=== PATIENT | male | born 1955 | race Caucasian/White ===

== ENCOUNTER 2018-08-26 11:54 | Observation (INO) | payer OTHER ==
--- OUTSIDE RECORDS SUMMARY | 2018-08-26 11:57 | XMS REPORT ---
:1955 [facility] Address [address] [place] [address] [address] [place] [address] Care Team Providers Name Role Phone DR MOY MAURICIO Unavailable Unavailable Problems This patient has no known problems. Allergies, Adverse Reactions, Alerts This patient has no known allergies or adverse reactions. Medications This patient has no known medications. Encounters Start End Encounter Admission Attending Care Care Encounter Date/Time Date/Time Type Type Clinicians Facility Department ID 2018-05-07 2018-05-07 Outpatient E MOY MAURICIO [facility] [id number] 18:32:00 19:45:00 Results Test Description Test Time Test Comments Text Results Atomic Results Result Comments BRAIN NATRIURETIC PROTEIN OW 2018-05-07 19:21:00 Test Item Value Reference Range Comments BNP (test code=OBNP) <15 pg/mL 0-50 XR CHEST 1 VIEW PORTABLE *OW*2018-05-07 19:18:55EXAM: CHEST ONE VIEWINDICATION: Chest painCOMPARISON: None availableTECHNIQUE: AP view of the chest.FINDINGS: The heart size is normal. The lungs are clear bilaterally. No pneumothorax orpleural effusion. The pulmonary vasculature is normal. The osseous structuresare unremarkable.IMPRESSION:1. No acute cardiopulmonary processLOCATION: A1CK MB i-STAT OW2018-05-07 19:12:00 Test Item Value Reference Range Comments CKMB (test code=A49) 6.5 ng/mL <=3.6 Previously reported as: 5.5 On 05/07/2018 19:12 By [email or web address] CHEM8+ i-STAT OW2018-05-07 19:10:00 Test Item Value Reference Range Comments SODIUM (test code=JULIO CÉSAR) 139 mmol/L 138-146 POTASSIUM (test code=KI) 4.0 mmol/L 3.5-4.9 CHLORIDE (test code=CLI) 101 mmol/L 98-109 CA IONIZED (test code=ICAI) 1.10 mmol/L 1.12-1.32 GLUCOSE (test code=GLUI) 93 mg/dL 75-100 TCO2 (test code=TCO2) 27 mmol/L 24-29 BUN (test code=BUN1) 19 mg/dL 8-26 CREATININE (test code=CREAI) 1.0 mg/dL 0.6-1.3 ANION GAP (test code=GANG) 16.0 mmol/L HGB (test code=MHB) 15.3 g/dL 12.0-17.0 HCT (test code=MHCT) 45.0 % 38.0-51.0 CBC (INCLUDES AUTOMATED DIFFERENTIAL) *2018-05-07 19:09:00 Test Item Value Reference Range Comments WBC (test code=WBC) 9.7 10\S\3/uL 4.5-11.0 RBC (test code=RBC) 4.96 10\S\6/uL 4.20-5.60 HGB (test code=HBG) 14.7 g/dL 14.0-18.0 HCT (test code=HCT) 45.2 % 35.0-46.0 MCV (test code=MCV) 91.2 fL 80.0-94.0 MCH (test code=MCH) 29.6 pg 27.0-31.0 MCHC (test code=MCHC) 32.5 g/dL 32.0-36.0 RDW (test code=RDW) 14.5 % 11.5-14.5 PLT (test code=PLT) 183 10\S\3/uL 130-400 MPV (test code=OMPV) 8.5 fL 6.2-10.2 NEUTROP # (test code=NE#) 6.5 10\S\3/uL 2.0-8.0 LYMPH # (test code=LY#) 2.2 10\S\3/uL 1.2-4.0 MID # (test code=GMID#) 1.0 10\S\3/uL 0.0-1.1 GRA % (test code=GRA%) 67.2 % 35.0-73.0 LYMPH % (test code=GLY%) 22.9 % 20.0-55.0 MID % (test code=GMID%) 9.9 % 0.0-10.0 PROTHROMBIN TIME i-STAT OW2018-05-07 19:01:00 Test Item Value Reference Range Comments PT (test code=PT1) 13.0 s 10.0-13.0 INR (test code=INR) 1.1 INRH (test code=INRH) SUGGESTED THERAPEUTIC RANGE FOR INR: 2.5 - 3.5 For Patients with Prosthetic Valves or Patients with recurrent Thromboembolic Events 2.0 - 3.0 For Most Other Applications TROPONIN I i-STAT OW2018-05-07 19:00:00 Test Item Value Reference Range Comments TROPONIN I (test code=A84) 0.020 ng/mL 0.000-0.045
--- OUTSIDE RECORDS SUMMARY | 2018-08-26 11:57 | XMS REPORT | Clinical Summary ---
:1955 Author Organization [facility] Address [address] [place] [address] Care Team Providers Name Role Phone Asked, No Pcp Primary Care Provider Unavailable Allergies No Known Allergies Medications Medication Sig Dispensed Refills Start Date End Date Status metoprolol succinate Take 25 mg by 0 Active XL (TOPROL-XL) 25 mg mouth every 24 hr tablet evening. atorvastatin (LIPITOR) Take 40 mg by 0 Active 40 MG tablet mouth every evening. sertraline (ZOLOFT) 50 Take 50 mg by 0 Active MG tablet mouth every evening. aspirin (ECOTRIN) 81 Take 81 mg by 0 Active MG enteric coated mouth every tablet evening. clopidogrel (PLAVIX) Take 1 tablet 30 tablet 5 04/05/2018 05/05/2018 75 mg tablet (75 mg total) by mouth daily for 30 days. Active Problems Problem Noted Date Atherosclerotic heart disease 05/02/2018 Abnormal cardiac function test 04/04/2018 Encounters Date Type Specialty Care Team Description 05/02/2018 Surgery Procedural Gómez Vaughan, Pci percutaneous Cardiology cardiac angioplasty 05/02/2018 - Hospital Cardiology Gómez Vaughan, Atherosclerosis of 05/03/2018 Encounter coronary artery of [place] heart with other form of angina pectoris, unspecified vessel or lesion type 04/04/2018 Surgery Procedural Gómez Vaughan, Cv left heart cath w lv Cardiology MD chris hunt [[id number] (CPT)] 04/04/2018 - Hospital Cardiology Gómez Vaughan, Coronary artery disease of [place] artery of [place] heart with stable angina pectoris (Primary Dx); 04/05/2018 Encounter Abnormal cardiac function test after 08/25/2017 Social History Tobacco Use Types Packs/Day Years Used Date Former Smoker Smokeless Tobacco: Never Used Alcohol Use Drinks/Week oz/Week Comments Yes social Sex Assigned at Date Recorded Not on file Job Start Date Occupation Industry Not on file Not on file Not on file Travel History Travel Start Travel End No recent travel history available. Last Filed Vital Signs Vital Sign Reading Time Taken Blood Pressure 130/71 05/03/2018 9:00 AM CDT Pulse 67 05/03/2018 9:00 AM CDT Temperature 36.1 C (96.9 F) 05/03/2018 7:21 AM CDT Respiratory Rate 20 05/03/2018 7:21 AM CDT Oxygen Saturation 96% 05/03/2018 9:00 AM CDT Inhaled Oxygen Concentration - - Weight 134 kg (295 lb 7 oz) 04/05/2018 6:15 AM CDT Height 180.3 cm (5' 11") 04/04/2018 6:54 AM CDT Body Mass Index 41.21 04/05/2018 6:15 AM CDT Plan of Treatment Health Maintenance Due Date Last Done Comments COLON CANCER SCREENING 2005 SHINGLES VACCINES (1 of 2) 2005 INFLUENZA VACCINE 03/13/2018 Implants Implanted Type Area Ticket Chopper Assembler Device Shelf Model / Identifier Expiration Serial / Date Lot Catheter Bln Otw 2.5mm 12mm Sprinter - [id number] Cardiovascular N/A: [employer] [facility] - [id number] / Implanted: 05/02/2018 (Quantity not on file) Implants N/A VASCULAR / Catheter Cardiac 7f Mach 1 Al2 - [id number] Cardiovascular N/A: [id number] / Implanted: 05/02/2018 (Quantity not on file) Implants N/A INTERVENTIONAL / CARDIOLOGY Stent System 3.5 X 12mm Resolute [place] Otw Coronary - [id number] Coronary Stents N/A: [employer] [place] - [id number] / Implanted: 04/04/2018 (Quantity not on file) N/A CARDIAC RYHTYM / MGMT Stent System 3.5 X 08mm Resolute Chidi Otw Coronary - [id number] Coronary Stents N/A: [employer] [place] - [id number] / Implanted: 04/04/2018 (Quantity not on file) N/A CARDIAC RYHTYM / MGMT Stent System 2.0 X 30mm Resolute [place] Rx Coronary - [id number] Coronary Stents N/A: [employer] [facility] - [id number] / Implanted: 05/02/2018 (Quantity not on file) N/A VASCULAR / Stent System 2.0 X 30mm Resolute Chidi Rx Coronary - [id number] Coronary Stents N/A: [employer] [place] - [id number] / Implanted: 05/02/2018 (Quantity not on file) N/A VASCULAR / Stent System 2.75 X 18mm Resolute [place] Otw Coronary - [id number] Coronary Stents N/A: [employer] - [id number] / Implanted: Qty: 1 on 05/02/2018 by Gómez Vaughan MD N/A CARDIAC RYHTYM / MGMT Procedures Procedure Name Priority Date/Time Associated Diagnosis Comments ECG PRE/POST OP Routine 05/03/2018 3:19 Results for this AM CDT procedure are in the results section. ESTIMATED GFR Routine 05/03/2018 3:13 Results for this AM CDT procedure are in the results section. HC COMPLETE BLD Routine 05/03/2018 3:13 Results for this COUNT W/AUTO DIFF AM CDT procedure are in the results section. BASIC METABOLIC Routine 05/03/2018 3:13 Results for this PANEL AM CDT procedure are in the results section. ECG PRE/POST OP Routine 05/02/2018 4:46 Results for this PM CDT procedure are in the results section. ACTIVATED CLOTTING Routine 05/02/2018 2:14 Results for this TIME PM CDT procedure are in the results section. ACTIVATED CLOTTING Routine 05/02/2018 1:34 Results for this TIME PM CDT procedure are in the results section. CV PCI PERCUTANEOUS Routine 05/02/2018 12:20 Atherosclerosis of Results for this CARDIAC ANGIOPLASTY PM CDT coronary artery of procedure are in [place] heart with other the results form of angina section. pectoris, unspecified vessel or lesion type ACTIVATED CLOTTING Routine 05/02/2018 11:01 Results for this TIME AM CDT procedure are in the results section. ACTIVATED CLOTTING Routine 05/02/2018 10:51 Results for this TIME AM CDT procedure are in the results section. ACTIVATED CLOTTING Routine 05/02/2018 10:40 Results for this TIME AM CDT procedure are in the results section. ACTIVATED CLOTTING Routine 05/02/2018 10:29 Results for this TIME AM CDT procedure are in the results section. ACTIVATED CLOTTING Routine 05/02/2018 10:18 Results for this TIME AM CDT procedure are in the results section. ACTIVATED CLOTTING Routine 05/02/2018 9:34 Results for this TIME AM CDT procedure are in the results section. ESTIMATED GFR Routine 04/26/2018 3:00 Results for this PM CDT procedure are in the results section. PROTHROMBIN TIME Routine 04/26/2018 3:00 Old myocardial Results for this WITH INR PM CDT infarction procedure are in Congestive the results cardiomyopathy section. BASIC METABOLIC Routine 04/26/2018 3:00 Old myocardial Results for this PANEL PM CDT infarction procedure are in Congestive the results cardiomyopathy section. HC COMPLETE BLD Routine 04/26/2018 3:00 Old myocardial Results for this COUNT W/AUTO DIFF PM CDT infarction procedure are in Congestive the results cardiomyopathy section. HC COMPLETE BLD Routine 04/05/2018 6:30 Results for this COUNT W/AUTO DIFF AM CDT procedure are in the results section. ZZESTIMATED GFR Routine 04/05/2018 4:00 Results for this AM CDT procedure are in the results section. BASIC METABOLIC Routine 04/05/2018 4:00 Results for this PANEL AM CDT procedure are in the results section. CONSULT CARDIAC Routine 04/04/2018 2:38 REHAB PHASE 1 PM CDT ECG PRE/POST OP Routine 04/04/2018 11:44 Results for this AM CDT procedure are in the results section. CV PERCUTANEOUS Routine 04/04/2018 10:55 Abnormal cardiac Results for this CORONARY AM CDT function test procedure are in INTERVENTION the results section. CV LEFT HEART CATH Routine 04/04/2018 10:55 Abnormal cardiac Results for this LV GRAM WITH CORS AM CDT function test procedure are in the results section. ACTIVATED CLOTTING Routine 04/04/2018 10:24 Results for this TIME AM CDT procedure are in the results section. ECG 12-LEAD STAT 04/04/2018 6:51 Results for this AM CDT procedure are in the results section. after 08/25/2017 Results ECG Pre/Post Op (05/03/2018 3:19 AM CDT)Only the most recent of3 resultswithin the time period is included. Ventricular rate 74 [facility] Atrial rate 74 [facility] FL interval 188 [facility] QRSD interval 98 [facility] QT interval 402 [facility] QTC interval 446 [facility] P axis 1 43 [facility] QRS axis 1 55 [facility] T wave axis 45 [facility] EKG impression Normal sinus rhythm-Normal ECG-In automated [facility] comparison with ECG of 02-MAY-2018 16:46,-No significant change was found- Performing Organization Address City/[facility] Phone Number [facility] MUSE [address] [place] [address] Estimated GFR (05/03/2018 3:13 AM CDT)Only the most recent of2 resultswithin the time period is included. Estimated GFR 80 mL/min/1.73 m2 [facility] DEPARTMENT OF Comment: PATHOLOGY AND GENOMIC CatergoryUnitsInterpretation MEDICINE G1 >=90 Normal or high G2 60-89Mildly decreased [id number] to moderately decreased D2y84-10Ojumdzljdp to severely decreased G4 15-29Severely decreased G5 <15Kidney failure The eGFR was calculated using the Chronic Kidney Disease Epidemiology Collaboration (CKD-EPI) equation. Interpretation is based on recommendations of the National Kidney Foundation-Kidney Disease Outcomes Quality Initiative (NKF-KDOQI) published in 2014. Specimen Plasma specimen Performing Organization Address City/[facility] Cent[facility]ode Phone Number [facility] PATHOLOGY AND [address] [place] [phone] GENOMIC MEDICINE CBC with platelet and differential (05/03/2018 3:13 AM CDT)Only the most recent of3 resultswithin the time period is included. WBC 10.48 4.50 - 11.00 k/uL [facility] DEPARTMENT OF PATHOLOGY AND GENOMIC MEDICINE RBC 4.38 (L) 4.40 - 6.00 m/uL [facility] DEPARTMENT OF PATHOLOGY AND GENOMIC MEDICINE HGB 13.2 (L) 14.0 - 18.0 g/dL [facility] DEPARTMENT OF PATHOLOGY AND GENOMIC MEDICINE HCT 40.2 (L) 41.0 - 51.0 % [facility] DEPARTMENT OF PATHOLOGY AND GENOMIC MEDICINE MCV 91.8 82.0 - 100.0 fL [facility] DEPARTMENT OF PATHOLOGY AND GENOMIC MEDICINE MCH 30.1 27.0 - 34.0 pg [facility] DEPARTMENT OF PATHOLOGY AND GENOMIC MEDICINE MCHC 32.8 31.0 - 37.0 g/dL [facility] DEPARTMENT OF PATHOLOGY AND GENOMIC MEDICINE RDW - SD 49.4 37.0 - 55.0 fL [facility] DEPARTMENT OF PATHOLOGY AND GENOMIC MEDICINE MPV 10.8 8.8 - 13.2 fL [facility] DEPARTMENT OF PATHOLOGY AND GENOMIC MEDICINE Platelet count 147 (L) 150 - 400 k/uL [facility] DEPARTMENT OF PATHOLOGY AND GENOMIC MEDICINE Nucleated RBC 0.00 /100 WBC [facility] DEPARTMENT OF PATHOLOGY AND GENOMIC MEDICINE Neutrophils 74.9 (H) 39.0 - 69.0 % [facility] DEPARTMENT OF PATHOLOGY AND GENOMIC MEDICINE Lymphocytes 11.9 (L) 25.0 - 45.0 % [facility] DEPARTMENT OF PATHOLOGY AND GENOMIC MEDICINE Monocytes 10.2 (H) 0.0 - 10.0 % [facility] DEPARTMENT OF PATHOLOGY AND GENOMIC MEDICINE Eosinophils 2.0 0.0 - 5.0 % [facility] DEPARTMENT OF PATHOLOGY AND GENOMIC MEDICINE Basophils 0.7 0.0 - 1.0 % [facility] DEPARTMENT OF PATHOLOGY AND GENOMIC MEDICINE Immature granulocytes 0.3Comment: 0.0 - 1.0 % [facility] DEPARTMENT OF "Immature PATHOLOGY AND GENOMIC granulocytes" MEDICINE (promyelocytes, myelocytes, metamyelocytes) Specimen Blood Performing Organization Address City/[facility] Phone Number [facility] DEPARTMENT PATHOLOGY AND [address] [place] [phone] [facility] MEDICINE Basic metabolic panel (05/03/2018 3:13 AM CDT)Only the most recent of3 resultswithin the time period is included. Sodium 139 135 - 148 mEq/L [facility] DEPARTMENT OF PATHOLOGY AND GENOMIC MEDICINE Potassium 4.3 3.5 - 5.0 mEq/L [facility] DEPARTMENT OF PATHOLOGY AND GENOMIC MEDICINE Chloride 105 98 - 112 mEq/L [facility] DEPARTMENT OF PATHOLOGY AND GENOMIC MEDICINE CO2 23 (L) 24 - 31 mEq/L [facility] DEPARTMENT OF PATHOLOGY AND GENOMIC MEDICINE Anion gap 11@ANIO 7 - 15 mEq/L [facility] DEPARTMENT OF PATHOLOGY AND GENOMIC MEDICINE BUN 19 8 - 23 mg/dL [facility] DEPARTMENT OF PATHOLOGY AND GENOMIC MEDICINE Creatinine 1.00 0.70 - 1.20 mg/dL [facility] DEPARTMENT OF PATHOLOGY AND GENOMIC MEDICINE Glucose 106 (H) 65 - 99 mg/dL [facility] DEPARTMENT OF PATHOLOGY AND GENOMIC MEDICINE Calcium 8.7 (L) 8.8 - 10.2 mg/dL [facility] DEPARTMENT OF PATHOLOGY AND GENOMIC MEDICINE Specimen Plasma specimen Performing Organization Address City/[facility]ercode Phone Number [facility] DEPARTMENT PATHOLOGY AND [address] [place] [phone] [facility] MEDICINE Activated clotting time (05/02/2018 2:14 PM CDT)Only the most recent of9 resultswithin the time period is included. Activated clotting time 154 (H) 96 - 152 sec [facility] DEPARTMENT OF Comment: PATHOLOGY AND GENOMIC Meter ID: [id number] MEDICINE Svp Operations: Eliu Cody Performing Organization Address City/State/Zipcode Phone Number [facility] DEPARTMENT OF PATHOLOGY AND [address] [place] [address] [facility] Cv clinical laboratory manager procedure (05/02/2018 12:20 PM CDT) [facility] Pl[facility] of a 2.75x18 mm Resolute [place] SANDRA to OM1 and 2 overlapping 2.0x30 mm Resolute Chidi SANDRA to OM2 SOAPING DEPARTMENT SUPERVISOR. OM2 had BREANNA 2 flow at the end of the case Attending: Dr. Gómez Vaughan Interventional Fellow: Tyshawn Garcia, Resident, EQUIPMENT/ANTICOAGULATION: Right Common Femoral Artery 7F Sheath XB4, XB4.5Guide Catheter Hi-Torque Floppy XS, PT2 coronary wire Anticoagulation:Heparin with ACT >250 sec prior to procedure PROCEDURAL DETAILS: The LMT was engaged with the [id number] Catheter and aHi Torque regular coronary wirecoronary wire was advanced into the distal OM1.A PT2 wire was then advanced into and across the OM2 SOAPING DEPARTMENT SUPERVISOR into the inferior bifurcation. A 1.5x15 mm semicompliant balloon was advanced to the distal lesion and serial dilations were performed back to the proximal at 8 fabian. After this, there appeared to be dissection of the vessel. There also appeared to be a new branch that wasn't appreciated on the initial angiogram. Next, the tandem lesions in the proximal OM1 with interposed aneurysmal segment was pre-dilated with a 2.5x12 mm semi-compliant balloon at 10 fabian and stented with a 2.75x18 mm Resolute [place] SANDRA at 12 fabian. Attempt was made to post dilate with a 2.75x12 mm NC, however it would not cross the proximal edge of the stent even after switching out for a stiffer wire.Unfortunately, in attempting to advance the balloon the guide was pushed out of the ostium and guide position was lost. The XB4 was then changed out for an XB4.5 guide. The stent was rewired and a 2.75x6 mm NC was advanced and inflated to 16 fabian for serial inflations throughout the stent.After this, attention was turned back to the OM2 and it was rewired with the Hi Torque floppy into the distal vessel with care to be in the true lumen.A 2.0x20 mm balloon was advanced and used to inflate the lesion at 8 fabian. Next a 2.0x30 mm Resolute Chidi SANDRA was advanced to the distal lesion and deployed at 12 fabian.There remained TIMI1 flow, so a second 2.0x30 mm Resolute Chidi SANDRA was deployed back to the ostium. Flow was still poor and there was concern for distal dissection.The stent balloon was advanced to the distal edge of the stent and inflated for 60 seconds with some improvement but still minimal distal flow.The balloon was exchanged for a 1.5x15 mm balloon which was advanced and inflated distally to the stent for another 60 seconds. With this, distal flow improved greatly, but was still TIMI2. There was no obvious further dissection and the patient was hemodynamically stable and pain free so the case was ended at this point. HEMOSTASIS: Manual Pressure ADDITIONAL POST-PROCEDURE MEDICATIONS: PLAN: 1. ASA 81mg daily 2. Clopidogrel 75mg daily . 3. Cardiac medical therapy and aggressive risk factor modification. Cardiac rehabilitation. 4. Transferred in stable condition Performing Organization Address [facility]/Zipcode Phone Number [facility] [address] [place] [address] Prothrombin time with INR (04/26/2018 3:00 PM CDT) Prothrombin time 13.7 12.0 - 15.0 sec [facility] DEPARTMENT OF PATHOLOGY AND GENOMIC MEDICINE INR 1.0 [facility] DEPARTMENT OF Comment: PATHOLOGY AND GENOMIC The International Normalized Ratio (INR) is a therapeutic MEDICINE monitoring tool for patients who are stable on oral anticoagulant therapy. An INR of 2.0-3.0 is suggested for deep vein thrombosis/pulmonary embolism. Specimen Blood Performing Organization Address [facility]/Zipcode Phone Number [facility] DEPARTMENT OF PATHOLOGY [address] [place] [address] AND Private Practice MEDICINE Estimated GFR (04/05/2018 4:00 AM CDT) GFR Non Af Amer 68 mL/min/1.73 m2 [facility] DEPARTMENT OF PATHOLOGY AND GENOMIC MEDICINE GFR Af Amer 82 mL/min/1.73 m2 [facility] DEPARTMENT OF Comment: PATHOLOGY AND GENOMIC Chronic kidney disease: <60 mL/min/1.73m2 MEDICINE Kidney failure: <15 mL/min/1.73m2 The estimated GFR is calculated from the IDMS-traceable Modification of Diet in Renal Disease Equation. The accuracy of the calculation is poor when the creatinine is normal. Calculated values >90 mL/min/1.73m2 are not reported. This equation has not been validated in children (<18 years), women, the elderly (>70 years), or ethnic groups other than Caucasians and Americans. Specimen Plasma specimen Performing Organization Address City/State/Zipcode Phone Number [facility] DEPARTMENT OF PATHOLOGY AND [address] [place] [address] [facility] Cv clinical laboratory manager procedure (04/04/2018 10:55 AM CDT) Cath EF Quantitative 40 % [facility] Narrative Performed At [facility] 3.5x12 Resolute [place] SANDRA to distal LAD with questionable dissection at proximal edge covered with a 3.5x8 mm Resolute [place] SANDRA with no evidence of dissection or perforation and TIMI3 flow Severe stenosis of OM1, and SOAPING DEPARTMENT SUPERVISOR of OM2, planned for staged PCI Attending: Dr. Gómez Vaughan Interventional Fellow: Tyshawn Garcia, Resident, MD EQUIPMENT/ANTICOAGULATION: Right Common Femoral Artery 6F Sheath XB LAD 3.5Guide Catheter Hi-Torque Floppy XS coronary wire Anticoagulation:Angiomax bolus and Infusion with ACT >250 sec prior to procedure PROCEDURAL DETAILS: The LMT was engaged with the XB LAD 3.5Guide Catheter and a Hi-Torque Floppy XS coronary wirecoronary wire was advanced into the distal LAD. The lesion in the distalLAD was pre-dilated with a 2.0x10mm semi-compliant balloon at 12atm and stented with a 3.5x12 mm Resolute [place] SANDRA at 12atm.Angiography was concerning for a limited edge dissection at the proximal edge of the stent so a 3.5x8 mm Resolute Chidi SANDRA was advanced and overlapped with the initial stent and deployed at 11 fabian. Both stents were then post dilated with a 3.5x11 mm NC stormer at 14 fabian. Final angiography revealed no evidence of dissection or perforation; there was BREANNA 3 flow and 0% residual stenosis. HEMOSTASIS: Manual Pressure ADDITIONAL POST-PROCEDURE MEDICATIONS: PLAN: 1. ASA 81mg daily 2. Clopidogrel 75mg daily . 3. Cardiac medical therapy and aggressive risk factor modification. Cardiac rehabilitation. 4. Transferred in stable condition Performing Organization Address City/[facility]/Zipcode Phone Number [facility] [address] [place] [address] ECG 12 lead (04/04/2018 6:51 AM CDT) Ventricular rate 64 [facility] Atrial rate 64 [facility] M[facility] FL interval 168 [facility] QRSD interval 96 [facility] QT interval 394 [facility] QTC interval 406 [facility] P axis 1 42 [facility] QRS axis 1 39 [facility] M[facility] T wave axis 39 HM MUSE EKG impression Normal sinus rhythm-Possible Inferior infarct HM MUSE , age undetermined-Abnormal ECG-No previous ECGs available- Performing Organization Address [facility] Phone Number [facility] MUSE [address] [place] [address] after 08/25/2017 Insurance Payer Benefit Plan / Group Subscriber ID Type Phone Address [employer] OPEN ACCESS/NETWORK xxxxxxxxxxx HMO (Home) [address] [place] [id number] Advance Directives Patient has advance care planning documents on file. For more information, please contact:[place] [address]
[2018-08-26 12:22] LABS: Absolute Lymphocytes (CBC) 2.8 K/uL (0.7-4.9); Absolute Monocytes 0.9 K/uL (0.1-1.3); Absolute Neutrophil 6.5 K/uL (1.8-8.0); Basophils % 0.8 % (0-1.3); Eosinophils % 0.8 % (0-4.4); Hematocrit 46.1 % (39.6-49.0); Lymphocytes % 26.9 % (15.3-44.8); MPV 8.9 fL (7.6-11.3); Monocytes % 8.6 % (3.3-12.3); Protime INR 1.07; RBC Red Blood Cell Count 5.15 M/uL (4.33-5.43)
[2018-08-26 12:32] LABS: ALT/SGPT 28 U/L (12-78); AST/SGOT 23 U/L (15-37); Albumin 3.5 g/dL (3.4-5.0); Alkaline Phosphatase 81 U/L (45-117); BUN Blood Urea Nitrogen 14 mg/dL (7-18); Bicarbonate 25 mmol/L (21-32); Bilirubin Total 0.5 mg/dL (0.2-1.0); Glucose Level 87 mg/dL (74-106); NT PRO-BNP 94 pg/mL (<125); Potassium 3.8 mmol/L (3.5-5.1); Protein, Total 7.4 g/dL (6.4-8.2); Sodium Level 142 mmol/L (136-145); Troponin (Emerg Dept Use Only) < 0.02 ng/mL (0.0-0.045)
--- NOTE | 2018-08-26 12:39 | ER ---
Nurse's Notes [facility] Name: Venkat Gutierrez Age: 63 yrs Sex: Male : 1955 Arrival Date: 08/26/2018 Time: 11:57 Bed 5 Private MD: Diagnosis: chest pain Presentation: 08/26 11:59 Presenting complaint: EMS states: the pt had chest pain for about an hour starting at ca1 0700H today at work. He had a history of OK and 5 stents where put in March and April of last year. Because of his history the occupational health nurse has decided to send him to the ER. Transition of care: patient was not received from another setting of care. Onset of symptoms was August 26, 2018 at 07:00. Risk Assessment: Do you want to hurt yourself or someone else? Patient reports no desire to harm self or others. Initial Sepsis Screen: Does the patient meet any 2 criteria? No. Patient's initial sepsis screen is negative. Does the patient have a suspected source of infection? No. Patient's initial sepsis screen is negative. Care prior to arrival: Glucose check: 121. 11:59 Method Of Arrival: EMS: [facility] ca1 11:59 Acuity: LUIS MIGUEL 3 ca1 Historical: - Allergies: 12:05 No Known Allergies; ca1 - Home Meds: 12:05 metoprolol tartrate 50 mg Oral tab [Active]; aspirin 81 mg Oral chew [Active]; ca1 atorvastatin [Active]; clopidogrel 75 mg oral tab [Active]; Vascepa 1 gram oral cap [Active]; Zoloft Oral [Active]; - PMHx: 12:05 Myocardial infarction; ca1 - PSHx: 12:05 Heart stents; ca1 - Immunization history:: Flu vaccine is up to date. - Social history:: Smoking status: Patient/guardian denies using tobacco. - Ebola Screening: : Patient denies exposure to infectious person No symptoms or risks identified at this time. Screenin:10 Abuse screen: Denies threats or abuse. Denies injuries from another. Nutritional ca1 screening: No deficits noted. Tuberculosis screening: No symptoms or risk factors identified. Fall Risk None identified. Assessment: 12:10 General: Appears in no apparent distress. Behavior is calm, cooperative, appropriate ca1 for age. General:. General: Denies pain right now, but states "at 0700 H at work, I felt a sharp pain at my left chest and I felt dizzy. I Ignored it as it wasn't much but it lasted for an hour" . Pain: Denies pain. Pain: Neuro: Level of Consciousness is awake, alert, obeys commands, Oriented to person, place, time, situation, Reports dizziness, at 0700 H. Cardiovascular: Heart tones S1 S2 present Capillary refill < 3 seconds Patient's skin is warm and dry. Respiratory: Airway is patent Trachea midline Respiratory effort is even, unlabored, Respiratory pattern is regular, symmetrical, Breath sounds are clear bilaterally. GI: Abdomen is round non-distended, Bowel sounds present X 4 quads. Abd is soft and non tender X 4 quads. : No signs and/or symptoms were reported regarding the genitourinary system. EENT: No signs and/or symptoms were reported regarding the EENT system. Derm: Skin is intact, is healthy with good turgor, Skin is pink, warm \\T\\ dry. Musculoskeletal: Circulation, motion, and sensation intact. Capillary refill < 3 seconds, Range of motion: intact in all extremities. 12:10 Pain: Pain currently is 0 out of 10 on a pain scale. Pain began 0700 H Today. ca1 13:01 Reassessment: Patient appears in no apparent distress at this time. Patient and/or ca1 family updated on plan of care and expected duration. Pain level reassessed. Patient is alert, oriented x 3, equal unlabored respirations, skin warm/dry/pink. 14:02 Reassessment: Patient appears in no apparent distress at this time. Patient and/or ca1 family updated on plan of care and expected duration. Pain level reassessed. Patient is alert, oriented x 3, equal unlabored respirations, skin warm/dry/pink. Eating lunch with at bedside. 14:53 Reassessment: Patient appears in no apparent distress at this time. Patient is alert, ca1 oriented x 3, equal unlabored respirations, skin warm/dry/pink. Awaiting room assignment. 15:41 Reassessment: Patient appears in no apparent distress at this time. Patient is alert, ca1 oriented x 3, equal unlabored respirations, skin warm/dry/pink. Vital Signs: 11:59 BP 135 / 85; Pulse 65; Resp 17; Temp 98.1; Pulse Ox 99% on R/A; Weight 129.27 kg; ca1 Height 6 ft. 0 in. (182.88 cm); Pain 0/10; 12:56 BP 118 / 65; Pulse 59; Resp 18; Pulse Ox 97% on R/A; ca1 13:56 BP 119 / 59; Pulse 59; Resp 18; Pulse Ox 99% on R/A; ca1 14:53 BP 112 / 56; Pulse 68; Resp 19; Pulse Ox 100% on R/A; ca1 15:41 BP 122 / 69; Pulse 58; Resp 19; Pulse Ox 100% on R/A; ca1 16:12 BP 115 / 58; Pulse 67; Resp 18; Pulse Ox 100% on R/A; ca1 11:59 Body Mass Index 38.65 (129.27 kg, 182.88 cm) ca1 ED Course: 11:57 Patient arrived in ED. aa5 11:58 Denise Quiros, KYM is Primary Nurse. ca1 11:58 EKG done, by scanning tech. reviewed by Eleazar Blanton MD. sm3 11:59 Arm band placed on right wrist. EKG completed in triage. Results shown to MD. ca1 12:02 Eleazar Blanton MD is Attending Physician. ps1 12:03 Initial lab(s) drawn, by me. Inserted saline lock: 20 gauge in left antecubital area, jb1 using aseptic technique. Blood collected. 12:04 Triage completed. ca1 12:10 Patient maintains SpO2 saturation greater than 95% on room air. ca1 12:10 Patient has correct armband on for positive identification. Placed in gown. Bed in low ca1 position. Call light in reach. Side rails up X 1. quality assurance monitor chassis on. Pulse ox on. NIBP on. 12:38 Gutierrez Cevallos MD is Referral Physician. ps1 13:02 XRAY Chest (1 view) In Process Unspecified. EDMS 13:30 Niles Mckeon MD is Hospitalizing Provider. ps1 16:11 No provider procedures requiring assistance completed. Patient admitted, IV remains in ca1 place. Administered Medications: No medications were administered Outcome: 12:39 Discharge ordered by MD. ps1 13:31 Decision to Hospitalize by Provider. ps1 16:11 Admitted to Tele accompanied by tech, via wheelchair, room 420, with chart, Report ca1 called to Sola Garcia RN 16:11 Condition: stable 16:11 Instructed on the need for admit. 16:18 Patient left the ED. ca1 Signatures: Dispatcher [employer] Tyshawn Sellers jb1 Cara Kwok, RN RN aa5 Eleazar Blanton MD MD ps1 Sandi Mckeon 3 Denise Quiros RN RN ca1
--- NOTE | 2018-08-26 12:39 | EDPHYS ---
Physician Documentation [facility] Name: Venkat Gutierrez Age: 63 yrs Sex: Male : 1955 Arrival Date: 08/26/2018 Time: 11:57 Bed 5 Private MD: ED Physician Eleazar Blanton HPI: 08/26 12:03 This 63 yrs old Male presents to ER via Unassigned with complaints of Chest ps1 Pain. 12:03 Hx of CAD x5 stents. Dr. Orr in [facility]. Onset was this morning upon getting to [facility] work. Approximately 7am. Was going to get coffee, felt lightheaded, CP localized substernally. No radiation or diaphoresis. Pain rated as mild. Concerned because he reportedly had an artery that could not be stented during [facility] in Apr last year and had a hx of an MA that he did not know about. . Historical: - Allergies: 12:05 No Known Allergies; ca1 - Home Meds: 12:05 metoprolol tartrate 50 mg Oral tab [Active]; aspirin 81 mg Oral chew [Active]; ca1 atorvastatin [Active]; clopidogrel 75 mg oral tab [Active]; Vascepa 1 gram oral cap [Active]; Zoloft Oral [Active]; - PMHx: 12:05 Myocardial infarction; ca1 - PSHx: 12:05 Heart stents; ca1 - Immunization history:: Flu vaccine is up to date. - Social history:: Smoking status: Patient/guardian denies using tobacco. - Ebola Screening: : Patient denies exposure to infectious person No symptoms or risks identified at this time. ROS: 12:03 Constitutional: Negative for fever, chills, and weight loss, Eyes: Negative for injury, ps1 pain, redness, and discharge, ENT: Negative for injury, pain, and discharge, Respiratory: Negative for shortness of breath, cough, wheezing, and pleuritic chest pain, Abdomen/GI: Negative for abdominal pain, nausea, vomiting, diarrhea, and constipation, Back: Negative for injury and pain, MS/Extremity: Negative for injury and deformity, Skin: Negative for injury, rash, and discoloration. 12:03 Cardiovascular: Positive for chest pain. 12:03 Respiratory: Positive for dyspnea on exertion. 12:03 Neuro: Positive for near syncope. Exam: 12:03 Constitutional: This is a well developed, well nourished patient who is awake, alert, ps1 and in no acute distress. Head/Face: Normocephalic, atraumatic. Eyes: Pupils equal round and reactive to light, extra-ocular motions intact. Lids and lashes normal. Conjunctiva and sclera are non-icteric and not injected. Chest/axilla: Normal chest wall appearance and motion. Nontender with no deformity. No lesions are appreciated. Cardiovascular: Regular rate and rhythm. No gallops, murmurs, or rubs. Normal PMI, no JVD. No pulse deficits. Respiratory: Lungs have equal breath sounds bilaterally, clear to auscultation and percussion. No rales, rhonchi or wheezes noted. No increased work of breathing, no retractions or nasal flaring. Abdomen/GI: Soft, non-tender, with normal bowel sounds. No distension or tympany. No guarding or rebound. No evidence of tenderness throughout. Skin: Warm, dry with normal turgor. Normal color with no rashes, no lesions, and no evidence of cellulitis. MS/ Extremity: Pulses equal, no cyanosis. Neurovascular intact. Full, normal range of motion. Neuro: Awake and alert, GCS 15, oriented to person, place, time, and situation. Cranial nerves II-XII grossly intact. Sensory grossly intact. Vital Signs: 11:59 BP 135 / 85; Pulse 65; Resp 17; Temp 98.1; Pulse Ox 99% on R/A; Weight 129.27 kg; ca1 Height 6 ft. 0 in. (182.88 cm); Pain 0/10; 12:56 BP 118 / 65; Pulse 59; Resp 18; Pulse Ox 97% on R/A; ca1 13:56 BP 119 / 59; Pulse 59; Resp 18; Pulse Ox 99% on R/A; ca1 14:53 BP 112 / 56; Pulse 68; Resp 19; Pulse Ox 100% on R/A; ca1 15:41 BP 122 / 69; Pulse 58; Resp 19; Pulse Ox 100% on R/A; ca1 16:12 BP 115 / 58; Pulse 67; Resp 18; Pulse Ox 100% on R/A; ca1 11:59 Body Mass Index 38.65 (129.27 kg, 182.88 cm) ca1 MDM: 12:09 Patient medically screened. ps1 08/26 12:02 Order name: CBC with Diff; Complete Time: 12:37 [facility] 08/26 12:02 Order name: Magnesium; Complete Time: 12:37 [facility] 08/26 12:02 Order name: NT PRO-BNP; Complete Time: 12: [facility] 08/26 12:02 Order name: PT-INR; Complete Time: 12:37 [facility] 08/26 12:02 Order name: Troponin (emerg Dept Use Only); Complete Time: 12:37 [facility] 08/26 12:02 Order name: CMP; Complete Time: 12:37 [facility] 08/26 12:02 Order name: XRAY Chest (1 view); Complete Time: 13:42 [facility] 08/26 12:02 Order name: EKG; Complete Time: 12:03 [facility] 08/26 12:02 Order name: Cardiac monitoring; Complete Time: 12: [facility] 08/26 12:02 Order name: EKG - Nurse/Tech; Complete Time: 12: [facility] 08/26 12:02 Order name: IV Saline Lock; Complete Time: 12: [facility] 08/26 12:02 Order name: Labs collected and sent; Complete Time: 12: [facility] 08/26 12:02 Order name: O2 Per Protocol; Complete Time: 12:04 [facility] 08/26 12:02 Order name: O2 Sat Monitoring; Complete Time: 12:04 ps1 Administered Medications: No medications were administered Disposition: 08/26/18 13:31 Hospitalization ordered by Niles Mckeon for Observation. Preliminary diagnosis is chest pain. - Bed requested for Telemetry/MedSurg (observation). - Status is Observation. ca1 - Condition is Stable. - Problem is new. - Symptoms have improved. UTI on Admission? No Signatures: Dispatcher [employer] Teagan Chauhan RN RN iw Eleazar Blanton MD MD ps1 Denise Quiros RN RN ca1 Corrections: (The following items were deleted from the chart) 12:39 12:39 08/26/2018 12:39 Discharged to Home. Impression: Other chest pain. Condition is ps1 Stable. Forms are Medication Reconciliation Form, Thank You Letter, Antibiotic Education, Prescription Opioid Use. Follow up: Gutierrez Cevallos; When: 1 - 2 days; Reason: If symptoms return, Further diagnostic work-up, Recheck today's complaints, Continuance of care. Follow up: Emergency Department; When: As needed; Reason: Worsening of condition. Problem is new. Symptoms have improved. ps1 15:38 13:31 Hospitalization Ordered by Niles Mckeon MD for Observation. Preliminary diagnosis iw is chest pain. Bed requested for Telemetry/MedSurg (observation). Status is Observation. Condition is Stable. Problem is new. Symptoms have improved. UTI on Admission? No. ps1 16:18 15:38 08/26/2018 13:31 Hospitalization Ordered by Niles Mckeon MD for Observation. ca1 Preliminary diagnosis is chest pain. Bed requested for Telemetry/MedSurg (observation). Status is Observation. Condition is Stable. Problem is new. Symptoms have improved. UTI on Admission? No. iw
--- NOTE | 2018-08-26 13:28 | RAD REPORT ---
EXAM DESCRIPTION: Dylan Single View08/26/2018 1:01 pm CLINICAL HISTORY: Chest pain COMPARISON: 2016 FINDINGS: The lungs appear clear of acute infiltrate. The heart is normal size IMPRESSION: No acute abnormalities displayed
--- NOTE | 2018-08-26 15:07 | EKG ---
Test Date: 2018-08-26 Test Time: 11:52:35 Sound Recordist: GONZALEZ MEASUREMENT RESULTS: Intervals: Rate: 62 DE: 154 QRSD: 94 QT: 410 QTc: 416 [place]: P: 12 DE: 154 QRS: 35 T: 39 INTERPRETIVE STATEMENTS: Normal sinus rhythm Normal ECG No previous ECG available for comparison Electronically Signed On 08-26-18 15:06:07 ACCOUNTANT AUDITOR by Bradley Moya
[2018-08-26] MEDS ORDERED: ACETAMINOPHEN 500 MG TAB PO PRN (16:52)
[2018-08-26] MEDS ORDERED: MORPHINE 4 MG/ML SYR IV PRN (16:52)
[2018-08-26] MEDS ORDERED: NITROGLYCERIN 0.4 MG/TAB SL PRN (17:12)
[2018-08-26] MEDS ORDERED: INFLUENZA VACCINE (for 3y+) 0.5 ML DOSE IMVAC ONE (18:00)
[2018-08-26 18:39] VITALS: BMI 38.6
[2018-08-26] MEDS: ICOSAPENT ETHYL PO SCH (20:53)
[2018-08-26] MEDS ORDERED: ATORVASTATIN 80 MG TAB PO SCH (21:00)
[2018-08-26] MEDS ORDERED: CLOPIDOGREL 75 MG TABLET PO SCH (21:00)
[2018-08-26] MEDS ORDERED: ATORVASTATIN 40 MG TAB PO SCH (21:00)
--- NOTE | 2018-08-27 02:47 | HP ---
Date of Admission: 08/26/2018 Chief Complaint: Chest pain. Stave Grader: Dr. Moya with Cardiology. Primary Care Physician: Unknown. History Of Present Illness: The patient is a 63-year-old male with past medical history of coronary artery disease, status post stent x5 in April of 2018 at [facility], essential hypertension, who was in his usual state of health until the day of admission when the patient had sudden onset of ches t tightness which was on the left side of his chest, sharp, nonradiating, associated with some dizzin ess and lightheadedness. Denies any nausea, vomiting, diaphoresis, or palpitation. The patient's pa in did not last very long. Did not recur. However, as the patient was recently diagnosed with silen t [place] and received 5 stents, he became concerned and came in to the ER for further evaluation. He did report his blood pressure being elevated more than usual and systolic 140s. His blood pressure on a typical day is 110 to 120s systolic. Upon arrival, the patient's workup was negative. Cardiac enzy mes and EKG were negative. His vital signs were stable. He was afebrile. The patient was referred for admission for cardiac workup. Past Medical History: SVT, status post ablation in 2005; coronary artery disease, status post stent; and essential hypertension. Past Surgical History: Cardiac stents x5 in April 2018, cardiac ablation for SVT in 2005, right rotator cuff repair, and appendectomy as a teenager. Medications: List reviewed. Allergies: NO KNOWN DRUG ALLERGIES. Social History: The patient quit smoking 5 years ago. No daily alcohol use. Drinks on occasion. N o illicit drug use. The patient is , works at [employer]. Family History: The patient denies any premature coronary artery disease in the family. States that cancer runs on his father's side of his family. Review of Systems: An 11-point system reviewed, negative except as per HPI. Physical Examination: Vital Signs: Blood pressure 135/85, pulse 65, respirations 17, temperature 98.1, and O2 of 99% on ro om air. General: Awake, alert, and oriented x3, not in any acute distress. Obese male. HEENT: Normocephalic, atraumatic. PERRLA. EOMI. Moist mucous membranes. Oropharynx is clear. No rmal dentition. Conjunctivae anicteric. Neck: Supple. No JVD. Trachea midline. CV: S1, S2. No murmurs. Regular rate and rhythm. Peripheral pulses present. Respiratory: Clear to auscultation bilaterally. No wheezing or stridor. No use of accessory muscle s. Gastrointestinal: Abdomen is soft, nontender, nondistended. Positive bowel sounds. Extremities: No clubbing or cyanosis. The patient does have some pedal edema. Neurologic: Nonfocal. Cranial nerves 2 through 12 intact grossly. No focal neurological deficit. Speech is normal. Strength is 5/5, bilateral upper and lower extremities. Skin: No rashes. Normal skin turgor. Psychiatric: Mood is okay. Affect is full. Insight and judgment are good. Laboratory Data: Sodium 142, potassium 3.8, chloride 110, CO2 of 25, BUN 14, creatinine 1.08, glucos e 87, calcium 8.5, magnesium 2. Troponin less than 0.02. Albumin 3.5. INR 1.07. WBC 10.3, H and H 15.2 and 46.1, platelets 211, and neutrophils 62%. Chest x-ray does not show any acute cardiopulmon gertrude process. EKG; normal sinus rhythm, rate of 62. No previous EKG for comparison. No ST or T-wave changes. Assessment And Plan: A 63-year-old male with; 1.Unstable angina. We will start on chest pain guidelines, beta-ginna, ALFONSO inhibitor, aspirin and Plavix, and statin. Cardiology has been consulted. Initial workup has been negative. We will obta in serial cardiac enzymes and electrocardiogram to rule out acute coronary syndrome. 2.Coronary artery disease, [place]vi artery and cheme[place]vi heart, status post stent x5, with angina. 3.Essential hypertension. We will resume home medications as appropriate. 4.Obesity, body mass index of 38. 5.Remote history of supraventricular tachycardia, status post ablation. Plan: Admit the patient to [facility], place with observation with remote cardiac telemetry. We will obtain echocardiogram. ROSETTE Voice ID: [id number]
[2018-08-27 04:16] LABS: Absolute Lymphocytes (CBC) 2.7 K/uL (0.7-4.9); Absolute Monocytes 0.9 K/uL (0.1-1.3); Basophils % 0.8 % (0-1.3); Hematocrit 43.7 % (39.6-49.0); Lymphocytes % 27.5 % (15.3-44.8); MPV 8.5 fL (7.6-11.3); RBC Red Blood Cell Count 4.85 M/uL (4.33-5.43)
[2018-08-27 04:29] LABS: Potassium 4.2 mmol/L (3.5-5.1)
[2018-08-27] MEDS ORDERED: CLOPIDOGREL 75 MG TABLET PO SCH (09:00)
[2018-08-27] MEDS: ICOSAPENT ETHYL PO SCH (09:00)
[2018-08-27] MEDS ORDERED: ASPIRIN EC 81 MG TAB PO SCH (09:00)
[2018-08-27] MEDS ORDERED: METOPROLOL TAR 50 MG TAB PO SCH (09:00)
[2018-08-27] MEDS ORDERED: LISINOPRIL 10 MG TAB PO SCH (09:00)
[2018-08-27] MEDS ORDERED: SERTRALINE HCL 50 MG TAB PO SCH (09:00)
[2018-08-27 09:29] VITALS: O2SAT 100
[2018-08-27 12:29] VITALS: BP 163/72; TEMP 97.3
--- NOTE | 2018-08-27 13:13 | ECHO ---
HEIGHT: 6 ft 0 in WEIGHT: 285 lb 0 oz DATE OF STUDY: 08/27/[address]: Niles Mckeon MD 2-DIMENSIONAL: YES M.MODE: YES DOPPLER: YES COLOR FLOW: YES TDS: NO PORTABLE: NO DEFINITY: NO BUBBLE STUDY: NO DIAGNOSIS: CHEST PAIN CARDIAC HISTORY: CATHERIZATION: SURGERY: PROSTHETIC VALVE: PACEMAKER: MEASUREMENTS (cm) DIASTOLIC (NORMALS) SYSTOLIC (NORMALS) IVSd 1.1 (0.6-1.2) LA Diam 3.9 (1.9-4.0) LVEF 74% LVIDd 4.1 (3.5-5.7) LVIDs 2.4 (2.0-3.5) %FS 42% LVPWd 1.2 (0.6-1.2) Ao Diam 3.2 (2.0-3.7) 2 DIMENSIONAL ASSESSMENT: RIGHT ATRIUM: NORMAL LEFT ATRIUM: NORMAL RIGHT VENTRICLE: NORMAL LEFT VENTRICLE: NORMAL TRICUSPID VALVE: NORMAL MITRAL VALVE: NORMAL PULMONIC VALVE: NORMAL AORTIC VALVE: NORMAL PERICARDIAL EFFUSION: NONE AORTIC ROOT: NORMAL LEFT VENTRICULAR WALL MOTION: NORMAL DOPPLER/COLOR FLOW: NORMAL COMMENTS: NORMAL 2D ECHOCARDIOGRAM WITH DOPPLER. NO WALL MOTION ABNORMALITY. NO EFFUSION. TECHNOLOGIST: Trupti WINKLER
--- NOTE | 2018-08-27 14:35 | CON ---
Date of Consultation: 08/27/[address] Mckeon's service on 08/26/2018. I saw the patient on 08/27/2018. Reason For Consultation: Chest pain and palpitations. History Of Present Illness: Mr. Gutierrez is a 63-year-old white male. He is a patient of Dr. Gómez Vaughan at [facility]. In April of 2018 according to the patient, he underwent 5 stents, 1 of them was a difficult vessel to get to, but eventually they did it. Prior to his stent, he did not mendez ve any chest pain. His primary care physician in [place] had noticed an abnormal EKG and underwent a workup and done the stents. Today, he comes with what he describes as a strong heartbeat, but not f ast. After that he developed a pinpoint sharp chest pain over the left anterior chest that did not r adiate. It lasted a few minutes. No nausea, vomiting, diaphoresis, PND, orthopnea, pedal edema, or syncope. By the time, I saw him, the EKG and chest x-ray and laboratory evaluation were all negative . Past Medical History: As stated above. Allergies: NONE. Review of Systems: Negative. Social History: Negative. Family History: Negative. Medications: At home include metoprolol, aspirin, Lipitor, Plavix, Vascepa, and Zoloft. Physical Examination: Vital Signs: He is a very pleasant man, in no acute distress. Vital Signs: Stable. Afebrile. HEENT: Negative. Neck: Supple with no bruit. Chest: Clear. Cardiac: Revealed a regular rhythm and rate without murmurs, gallops, or rubs. Abdomen: Benign. Extremities: Revealed no clubbing, cyanosis, or edema. Diagnostic Data: Normal. Impression And Plan: 1.Atypical chest pain, definitely noncardiac in nature. Echocardiogram is pending. I think it is m usculoskeletal. 2.History of coronary artery disease status post multiple stents. Has a followup coming up with Dr. Vaughan in the near future. 3.Hypertension. 4.Dyslipidemia. 5.Depression. The echocardiogram is normal. Mr. Gutierrez is not due for having a stress test and cert ainly does not need 1 at this point. He can follow up with Dr. Vaughan. He can go home as far as I am co ncerned. NB/MODL Voice ID: [id number] Report ID: [id number]
--- NOTE | 2018-09-01 16:36 | P.SSS ---
Patient History Date of Service: 08/27/18 History of Present Illness: The patient is a 63-year-old male with past medical history of coronary artery disease, status post stent x5 in April of 2018 at [facility], essential hypertension, who was in his usual state of health until the day of admission when the patient had sudden onset of chest tightness which was on the left side of his chest, sharp, nonradiating, associated with some dizziness and lightheadedness. Denies any nausea, vomiting, diaphoresis, or palpitation. The patient's pain did not last very long. Did not recur. However, as the patient was recently diagnosed with silent WA and received 5 stents, he became concerned and came in to the ER for further evaluation. He did report his blood pressure being elevated more than usual and systolic 140s. His blood pressure on a typical day is 110 to 120s systolic. Upon arrival, the patient's workup was negative. Cardiac enzymes and EKG were negative. His vital signs were stable. He was afebrile. The patient was referred for admission for cardiac workup. Allergies No Known Allergies Allergy (Unverified 08/26/18 14:18) Home Medications: Aspirin [Aspirin EC 81 MG] 1 tab PO DAILY 08/26/18 Atorvastatin Calcium [Lipitor] 1 tab PO BEDTIME 08/26/18 Clopidogrel Bisulfate [Plavix*] 1 tab PO DAILY 08/26/18 Icosapent Ethyl [Vascepa] 1 tab PO BID 08/26/18 Sertraline [Zoloft*] 50 mg PO DAILY 08/26/18 Lisinopril [Prinivil*] 10 mg PO DAILY #30 tab 08/27/18 Metoprolol Tartrate 25 mg PO BID #60 tablet 08/27/18 Nitroglycerin [Nitrostat*] 0.4 mg SL UD PRN #15 tab 08/27/18 - Past Medical/Surgical History Has patient received pneumonia vaccine in the past: No Diabetic: No -: MYOCARDIAL INFARCT -: DEPRESSION -: L. SHOULDER ROTATOR CUFF REPAIR -: 2005 HEART ABLATION FOR SVT -: X5 CORONARY STENTS -: APPE - Family History Father -: Cancer Notes: LUNG Brother -: Diabetes Mother Notes: AHLZEIMER'S - Social History Smoking Status: Former smoker Alcohol use: No CD- Drugs: No Caffeine use: Yes Place of Residence: Home Review of Systems 10-point ROS is otherwise unremarkable Physical Examination - Vital Signs Temperature: 97.3 F Blood Pressure: 163/72 Pulse: 59 Respirations: 20 Pulse Ox (%): 94 - Physical Exam General: Alert, In no apparent distress, Oriented x3 HEENT: Atraumatic, PERRLA, Mucous membr. moist/pink, EOMI, Sclerae nonicteric Neck: Supple, 2+ carotid pulse no bruit, No LAD, Without JVD or thyroid abnormality Respiratory: Clear to auscultation bilaterally, Normal air movement Cardiovascular: Regular rate/rhythm, Normal S1 S2 Gastrointestinal: Normal bowel sounds, No tenderness Musculoskeletal: No tenderness Integumentary: No rashes Neurological: Normal gait, Normal speech, Normal strength at 5/5 x4 extr, Normal tone, Normal affect Lymphatics: No axilla or inguinal lymphadenopathy Treatment Summary: Patient was admitted for chest pain, ACS was ruled out. cardiology was consulted. Patient had a normal ECHO, He will folllow up with his outpatient cardiology in 3-4 weeks. He remained HDS throughout the stay. - Disposition Discharge Date: 08/27/18 Disposition: ROUTINE DISCHARGE Condition: GOOD Consultations: Cardiology, Dr. Cevallos Patient Discharge Instructions: Please follow up with the senior medical transcriptionist in the next 1 week. Please follow up with the primary care physician in 1 week. New medications: Lisinopril (for the heart, blood pressure), metoprolol (for the heart), nitroglycerin sublingual as needed. Please return to the ER for worsening symptoms Diet: AHA Activity: Ad west Time Spent Managing Pts Care (In Minutes): 55
== END 2018-08-27 14:05 | disposition home or self-care (01) ==
LOC: ER 11:54 → ERHOLD 14:14 → 4TH 16:12
PROVIDERS: ADMIT Family Medicine; ATTEND Family Medicine
DX: R07.9 Chest pain, unspecified (principal); I25.10 Atherosclerotic heart disease of native coronary artery without angina pectoris; I10 Essential (primary) hypertension; Z95.5 Presence of coronary angioplasty implant and graft
CPT/HCPCS: 36415; 71045; 80048; 80053; 80061; 83735; 83880; 84484; 85025; 85610; 93005; 93306; 94760; 99285; G0378

== ENCOUNTER 2021-01-19 14:55 | Emergency (ER) | payer OTHER ==
--- OUTSIDE RECORDS SUMMARY | 2021-01-19 14:59 | XMS REPORT | Continuity of Care Document ---
:1955 Author Organization [facility] t Address [address] [place] [address] Care Team Providers Name Role Phone Eder Earl DO Primary Care Physician Jori Hernandes MD Attending Clinician Katiana CORDERO P. Attending Clinician Matt CORDERO Attending Clinician Alexus CORDERO CLindsey Attending Clinician Kiko Harkins MD Attending Clinician Gama MEJÍA Attending Clinician Unavailable Eder Earl DO Attending Clinician Jovanny Cain MD Attending Clinician PARESH Attending Clinician Unavailable DR LULY Attending Clinician Unavailable DR LULY Admitting Clinician Unavailable Payers Payer Name Policy Type Policy Effective Date Expiration Date Sour ce Number CIGNACIGNA OPEN [id number] 2002 [place] ACCESS/NETWORKxx 00:00:00 Methodis t [id number] 2-PresentHMO Problems Condition Condition Condition Status Onset Resolution Last Treating Co mments Source Name Details Category Date Date Treatment Clinician Date Essential Essential Disease Active 2019-08 Last Sincere rene hypertensi hypertensi 2- Assessmen Methodi on, benign on, benign 00:00: t & Plan: st 00 Formattin g of this note might be different from the original. 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 On statin; recent lipids from June 2020 were good Atheroscle Atheroscle Disease Active Last H chet rosis of rosis of 9-20 Assessmen Met hodi [place] 00:00: t & Plan: st coronary coronary 00 Formattin artery of artery of g of this [place] note heart heart might be without without different angina angina from the pectoris pectoris original. s/p multivess el PCI; no anginal symptoms; on antiplate lets and statin Abnormal Abnormal Disease Active [place] cardiac cardiac 04-04 Methodi function function 00:00: st test test 00 Allergies, Adverse Reactions, Alerts This patient has no known allergies or adverse reactions. Family History Family Member Diagnosis Comments Start Date Stop Date Source Natural brother Hypertension [place] Natural father Gallbladder disease [place] Natural father Heart disease [place] Natural father Hypertension [place] Natural father Lung cancer [facility] ethodist Natural [facility] [place] Natural mother Rheum arthritis [place] Social History Social Habit Start Date Stop Date Quantity Comments Source Exposure to Not sure [place] Metho dist SARS-CoV-2 (event) Cigarettes smoked 2020-08-09 2020-08-09 [place] current (pack per 00:00:00 00:00:00 day) - Reported Cigarette 2020-08-09 2020-08-09 [place] Method ist pack-years 00:00:00 00:00:00 Tobacco use and 2020-08-09 2020-08-09 Current user [place] exposure 00:00:00 00:00:00 Alcohol intake 2020-08-09 2020-08-09 Current drinker [place] on [place] 00:00:00 00:00:00 of alcohol (finding) Alcohol Comment 2018-04-04 2018-04-[address] [facility] ethodist 00:00:00 00:00:00 History of tobacco 1974 2013-08-18 Current smoker Tres moreira [place] use 00:00:00 00:00:00 Sex Ass[birth year] [facility] trevorjoi 00:00:00 00:00:00 Smoking Status Start Date Stop Date Source Former smoker 2020-08-09 00:00:00 2020-08-09 00:00:00 Fernando Kirkland Medications Ordered Filled Start Stop Current Ordering Indication Dosage Frequency Signature Comments Components Source Medication Medication Date Date Medication? Clinician (SIG) Name Name Zheng 2019-08 Yes 1{puff} QD Inhale 1 [place] Ellipta 09 puff once Methodi 62.5-25 00:00: daily. st mcg/actuati 00 on blister with device sertraline 2019-08 Yes 50mg QD Take 50 mg [place] (ZOLOFT) 50 09-13 by mouth Meth nikhil MG tablet 16:29: every st 54 evening. aspirin 2019-08 Yes 81mg QD Take 81 mg [place] (ECOTRIN) 09-13 by mouth Method i 81 MG 16:29: every st enteric 54 evening. coated tablet metoprolol 2019-08 Yes 25mg QD Take 25 mg [place] succinate 09-13 by mouth Method i XL 16:29: every st (TOPROL-XL) 54 evening. 25 mg 24 hr tablet icosapent 2019-08 Yes 2g Q.5D Take 2 g [place] ethyl 09-13 by mouth 2 Methodi (VASCEPA) 1 16:29: (two) st gram 54 times a capsule day. (vascepa) rosuvastati 2019-08 Yes 40mg QD Take 40 mg Fernando n (CRESTOR) 09-13 by mouth Meth nikhil 40 MG 16:29: daily. st tablet 54 clopidogrel 2019-08- No 75mg QD Take 75 mg [place] (PLAVIX) 75 09-13 by mouth Met hodi mg tablet 16:29: 00:[address] 53 :00 evening. atorvastati 2019-08- No 80mg QD Take 80 mg Fernando n (LIPITOR) 09-13 by mouth Met hodi 40 MG 16:29: 00:[address] tablet 50 :00 evening. Immunizations Ordered Immunization Filled Immunization Date Status Commen ts Source Name Name Sidelines COVID-19 MRNA 2020-10-10 Completed [place] VACCINATION 00:00:00 [place] PFIZER COVID-19 MRNA 2020-09-19 Completed [place] VACCINATION 00:00:00 [place] Vital Signs Vital Name Observation Time Observation Value Comments Source Systolic blood 2020-08-09 10:37:00 116 mm[Hg] [place] n [place] pressure Diastolic blood 2020-08-09 10:37:00 67 mm[Hg] [place] on [place] pressure Heart rate 2020-08-09 10:37:00 68 /min Fernando Kirkland Body height 2020-08-09 10:37:00 180.3 cm Fernando Kirkland Body weight 2020-08-09 10:37:00 132.995 kg Fernando Kirkland BMI 2020-08-09 10:37:00 40.89 kg/m2 Fernando Kirkland Procedures Procedure Date / Time Performing Clinician Source Performed CT CHEST WO CONTRAST 2021-01-18 09:10:50 Hernandes, Debi Dung Sincere Kumar PET CT SKULL BASE TO MID 2020-07-27 12:37:38 Mickie Hernandesng Sahilg Fernando Kirkland THIGH Stacy POC GLUCOSE 2020-07-27 10:38:00 Latasha Hernandesuong Dung Fernando Kumar COMPREHENSIVE METABOLIC 2020-07-20 15:55:00 Hernandes, Debi Dung Fernando Kirkland PANEL Stacy HC COMPLETE BLD COUNT 2020-07-20 15:55:00 Hernandes, Debi Dung Tres Kirkland W/AUTO DIFF Stacy CARCINOEMBRYONIC ANTIGEN 2020-07-20 15:55:00 Latasha Hernandesuong Sahilg Fernando Kirkland (CEA) Stacy PROSTATE SPECIFIC ANTIGEN 2020-07-20 15:55:00 Karley Debi Dun g Fernando Kumar ESTIMATED GFR 2020-07-20 15:55:00 Hernandes, Debi Dung Fernando Kumar ECG 12-LEAD 2020-07-13 17:33:[address] CHEST WO CONTRAST 2020-06-25 11:30:00 Torin Danny [place] Kiko [id number] 2020-03-31 00:00:00 Gómez Vaughan Meth odist CT CHEST LUNG CANCER 2020-03-26 10:22:01 System, Provider Not Tres [place] SCREENING In Plan of Care Planned Activity Planned Date Details Comments Source Future Scheduled 2021-03-26 Screening for Fernando Me thodist Test 00:00:00 malignant neoplasm of lung (procedure) [code = 538367725] Future Scheduled 2021-03-13 INFLUENZA VACCINE [place] Test 00:00:00 [code = INFLUENZA VACCINE] Future Scheduled 2018-05-07 SHINGLES VACCINES (#2) H chet [place] Test 00:00:00 [code = SHINGLES VACCINES (#2)] Future Scheduled 2005 COLONOSCOPY SCREENING Ho harish [place] Test 00:00:00 [code = COLONOSCOPY SCREENING] Future Scheduled 1973 Hepatitis C screening [facility] Mosque Test 00:00:00 (procedure) [code = 493030025] Future Scheduled 1961 65+ PNEUMOCOCCAL [place] Test 00:00:00 VACCINE (1 of 2 - PPSV23) [code = 65+ PNEUMOCOCCAL VACCINE (1 of 2 - PPSV23)] Encounters Start End Encounter Admission Attending Care Care Encounter Source Date/Time Date/Time Type Type Clinicians Facility Department ID 2021-01-18 2021-01-18 Outpatient HERNANDES, [facility] [id number] [place] 00:00:00 00:00:00 DEBI 941 Method i 2020-10-10 2020-10-10 Outpatient DURGABEN, [facility] [id number] [place] 00:00:00 00:00:00 CHRISTOPHER 321 Me thodi 2020-09-19 2020-09-19 Outpatient [facility] [id number] [place] 00:00:00 00:00:00 370 Method i 2020-08-09 2020-08-09 Outpatient GUTIERREZ, [facility] [id number] [place] 00:00:00 00:00:00 ED 460 Meth nikhil 2020-07-27 2020-07-27 Outpatient HERNANDES, [facility] [id number] [place] 00:00:00 00:00:00 DEBI 691 Method i 2020-07-20 2020-07-20 Outpatient HERNANDES, [facility] [id number] [place] 00:00:00 00:00:00 DEBI 679 Method i 2020-07-13 2020-07-13 Outpatient [facility] [id number] [place] 00:00:00 00:00:00 984 Method i 2020-06-25 2020-06-25 Outpatient HARKINS, [facility] [id number] [place] 00:00:00 00:00:00 DANNY 710 Method i 2020-03-26 2020-03-26 Outpatient JOYA EARL [facility] [id number] [place] 00:00:00 00:00:00 665 Method i 2019-10-02 2019-10-02 Outpatient YODER, [facility] [id number] [place] 00:00:00 00:00:00 NATANAEL 077 Method i 2019-10-02 2019-10-02 Outpatient YODER, [facility] [id number] [place] 00:00:00 00:00:00 NATANAEL 642 Method i 2019-10-02 2019-10-02 Outpatient YODER, [facility] [id number] [place] 00:00:00 00:00:00 NATANAEL 492 Method i 2019-10-02 2019-10-02 Outpatient YODER, [facility] [id number] [place] 00:00:00 00:00:00 NATANAEL 355 Method i 2019-10-02 2019-10-02 Outpatient YODER, [facility] [id number] [place] 00:00:00 00:00:00 NATANAEL 281 Method i 2019-10-02 2019-10-02 Outpatient YODER, [facility] [id number] [place] 00:00:00 00:00:00 NATANAEL 183 Method i 2018-05-07 2018-05-07 Outpatient E MOY MAURICIO [facility] [id number] [facility] 18:32:00 19:45:00 [facility] Results Test Description Test Time Test Comments Results Result [facility] e Comments CT Chest [facility] [place] Contrast [address] 10:11:47 Incoming - 01/18/2021 10:14 AM CDT EXAMINATION: CT CHEST WO CONTRASTCLINICAL HISTORY: R91.1 Solitary pulmonary nodule, Lung nodule 6-8mmTECHNIQUE: Axial images of the chest were obtained without intravenous contrast. The lack of intravenous contrast reduces the sensitivity of the exam and evaluating vasculature. CT imaging was performed with iterative reconstruction technique and/or automated exposure control to reduce radiation dose.COMPARISON: CT chest dated June 25, 2020.FINDINGS:Lungs and airways: 9.6 mm nodule in the inferior right upper lobe, not significantly changed from 9.3 mm on prior examination. No new suspicious pulmonary nodules. Right greater than left lung base atelectasis. Calcified granuloma in the right lower lobe.Pleura: No pleural effusion or pneumothorax.Mediasti num and lymph nodes: No lymphadenopathy. Cardiovascular: The heart is normal in size. Coronary artery stents are noted. Minimal calcific atherosclerosis of the aorta.Upper abdomen: No suspicious abnormalities.Musculo skeletal: No suspicious osseous lesions. Mild degenerative changes of the thoracic spine.IMPRESSION:A 9-10 mm inferior right upper lobe pulmonary nodule is not significantly changed in size from prior examinations. Recommend repeat CT of the chest in 6-12 months.[facility]-[id number] Dictated and approved by residential sales manager/fellow: Rony Elias M.D.I, Willy Perry MD, personally reviewed the images and resident's/fellow's findings and agree with the final report. PET/CT Skull 2020-07-13 [facility] Radiology Results Method ist Thigh 15:15:28 Incoming - 07/27/2020 3:18 PM CST EXAMINATION: PET CT SKULL BASE TO MID THIGHCLINICAL HISTORY: R91.1 Solitary pulmonary nodule, solitary lung nodule in ex smoker ; STAGINGCOMPARISON: No prior PET scans available, CT chest 06/25/2020 TECHNIQUE: The patient received 10-15 mCi 18-FDG intravenously. 1 hour later, PET/CT scanning from the orbits to the mid thighs was performed. CT scanning was nondiagnostic and used for attenuation correction purposes and to aid in localization of any abnormal findings on the PET images. Automated dose exposure control was utilized. Blood glucose = 88.FINDINGS:Head and NeckThere is no suspicious lymph node uptake and no evidence of malignancy in the brain.Chest9 mm nodule inferior right upper lobe does not demonstrate detectable uptake above background. No suspicious uptake in the: lungs, mediastinum, david, axillae.AbdomenUptake is normal in the: liver, spleen, adrenal glands, pancreas, kidneys, stomach. There is no suspicious retroperitoneal or mesenteric lymph node uptake.PelvisThere is no suspicious pelvic or inguinal lymph node uptake.Osseous StructuresThere is no suspicious osseous uptake. IMPRESSION:1.Stable 9 mm right upper lobe nodule without uptake, favoring a benign etiology. This does not exclude C, however, and follow-up chest CT in approximately 5-6 months is recommended.2.No evidence of FDG-avid malignancy.[facility]-[id number] ECG 12 lead 2020-07-13 17:24:25 Test Item Value Reference Range Interpretation Comme nts Ventricular rate (test code = 253) 60 Atrial rate (test code = 255) 60 MT interval (test code = 266) 164 QRSD interval (test code = 260) 100 QT interval (test code = 264) 412 QTC interval (test code = 265) 412 P axis 1 (test code = 267) 41 QRS axis 1 (test code = 268) 46 T wave axis (test code = 270) -5 EKG impression (test code = 273) Normal sinus rhythm-Inferior infar ct , age undetermined-Abnormal ECG- [facility] Chest Lung Cancer [id number] 10:53:47EXAMINATION: CT CHEST LUNG CANCER SCREENING CLINICAL HISTORY: The patient qualifies for lung cancer screening by meeting the following criteria: 1. Patient is age 55-75 years2. Patient has 30 or more pack years history of smoking3. Patient is a current or a former smoker who has quit within the last 15 years4. Patient is asymptomatic5. Patient has not had a CT scan of the chest within the last year6. Patient has no known history of [place] lung cancer within the last 5 years Patient has participated in a shared decision making session; including explanation on benefits and harms of screening, follow-up diagnostic testing, over diagnosis, false-positive rate, and total radiation exposure. Patient has received counseling on the importance of maintaining cigarette smoking abstinence and if appropriate, has received information on smoking cessation interventions. TECHNIQUE: Multiple axial images of the chest were obtained without intravenous contrast. Sagittal and coronal computerized reformatted im ages were also obtained. The study was performed using low-dose lung cancer screening protocol. Total Exam DLP: 49.5 mGy-cm. DOSE REDUCTION: CT imaging was performed with iterative reconstruction technique and/or automated exposure control to reduce radiation dose. COMPARISON: None. FINDINGS: 9 mm solid circumscribed pulmonary nodule located within the posterior aspect of the anterior right upper lobe near the major and minor fissures. Bilateral dependent subsegmental atelectasis. Curvilinear scarring in the lingula. Mild bronchial wall thickening consistent with colitis. Heart is normal in size. Calcification of the left anterior descending and circumflex coronary arteries with possible stents. No pericardial effusion. Aorta is nonaneurysmal and there is mild calcification of the descending segment. Pulmonary artery is normal in diameter. No mediastinal mass or thoracic adenopathy. No acute or suspicious osseous lesion is identified. IMPRESSION: 9 mm solid nodule anterior right upper lobe. Lung RADS category: 4A Recommendation: 3 month surveillance LDCT or PET/CT. ScoreCategoryFindings (Lung-RADS v1.1)Pwzhgjnaeq9GwcfhlkbRe lung nodules or Nodule(s) with specific calcifications:complete, central, popcorn, concentricrings and fat containing nodules 12 month VUWP7HswdmyColpeyunlarb nodule(s) (See Footnote 11)< 10 mm (524 mm3)Solid nodule(s):< 6 mm (< 113 mm3)new < 4 mm (< 34 mm3)Part solid nodule(s):< 6 mm total diameter (< 113 mm3) onbaseline screeningNon solid nodule(s) (GGN):<30 mm (<87427yd2) OR 30 mm ( 27473 mm3) and unchangedor slowly growing Category 3 or 4 nodules unchanged for 3 omisvc73 month HOVJ1Toeyzcxp BenignSolid nodule(s): 6 to < 8 mm ( 113 to < 268 mm3) atbaseline ORnew 4 mm to < 6 mm (34 to < 113 mm3)Part solid nodule(s): 6 mm total diameter ( 113 mm3) withsolid component < 6 mm (< 113 mm3) ORnew < 6 mm total diameter (< 113 mm3)Non solid nodule(s):(GGN) 30 mm ( 14,137 mm3) onbaseline CT or new6 month HBLH4IXxloheyqleFvnlq nodule(s): 8 to <15 mm ( 268 to < 1767 mm3) atbaseline ORgrowing < 8 mm (< 268 mm3) ORnew 6 to < 8 mm (113 to < 268 mm3)Part solid nodule(s): 6 mm ( 113 mm3) with solidcomponent 6 mm to < 8 mm ( 113 to< 268 mm3) ORwith a new or growing < 4 mm (< 34 mm3)solid componentEndobronchial nodule3 month LDCT; PET/CT may beused when there is a 8 mm (268 mm3) solid akcnvooja4UTbzk SuspiciousSolid nodule(s): 15 mm ( 1767 mm3) ORnew or growing, and 8 mm ( 268 mm3)Part solid nodule(s) with:a solid component 8 mm ( 268 mm3)OR a new or growing 4 mm ( 34 mm3) solid componentChest CT with or withoutcontrast, PET/CT and/or tissuesampling depending on the*probability of malignancy andcomorbidities. PET/CT may beused when there is a 8 mm( 268 mm3) solid component.For new large nodules thatdevelop on an annual repeatscreening CT, a 1 month LDCT may be recommended to address potentially infectious or inflammatory dmjkxurcsb8SQzdg SuspiciousCategory 3 or 4 nodules with additionalfeatures or imaging findings thatincreases the suspicion of malignancySame as 4B FOOTNOTES: 1) Negative screen: does not mean that an individual does not have lung cancer2) Size: To calculate nodule mean diameter, measure both the long and short axis to one decimal point, and report mean nodule diameter to one decimal point3) Size Thresholds: apply to nodules at first detection, and that grow and reach a higher size category4) Growth: an increase in size of > 1.5 mm (> 2 mm3)5) Exam Category: each exam should be coded 04 based on the nodule(s) with the highest degree of suspicion6) Exam Modifiers: S modifier may be added to the 04 category7) Lung Cancer Diagnosis: Once a patient is diagnosed with lung cancer, further management (including additional imaging such as PET/CT) may be performed for purposes of lungcancer staging; this is no longer screening8) Practice audit definitions: a negative screen is defined ascategories 1 and 2; a positive screen is defined as categories 3 and 49) Category 4B Management: this is predicated on the probability of malignancy based on patient evaluation, patient preference and risk of malignancy; radiologists areencouraged to use the Anna et al assessment tool when making lpgxlyyaalibmhu32) Category 4X: nodules with additional imaging findings that increase the suspicion of lung cancer, such as spiculation, GGN that doubles in size in 1 year, enlarged lymph nodes etc11) Solid nodules with smooth margins, an oval, lentiform or triangular shape, and maximum diameter less than 10 mm or 524 mm3(perifissural nodules) should be classified ascategory 212) Category 3 and 4A nodules that are unchanged on interval CT should be coded as category 2, and individuals returned to screening in 12 ibrsof82) LDCT: low dose [facility] MethodistBRAIN NATRIURETIC PROTEIN OW2018-05-07 19:21:00 Test Item Value Reference Range Interpretation Comments BNP (test code = OBNP) <15 pg/mL 0-50 XR CHEST 1 VIEW PORTABLE *OW*2018-05-07 19:18:55EXAM: CHEST ONE VIEWINDICATION: Chest painCOMPARISON: None availableTECHNIQUE: AP view of the chest.FINDINGS:The heart size is normal. The lungs are clear bilaterally. No pneumothorax orpleural effusion. The pulmonary vasculature is normal. The osseous structuresare unremarkable.IMPRESSION:1. No acute cardiopulmonary processLOCATION: A1CK MB i-STAT OW2018-05-07 19:12:00 Test Item Value Reference Range Interpretation Comments CKMB (test code = 6.5 ng/mL <=3.6 HH Previously reported as: A49) 5.5 On 2017 19:12 By JXS7 CHEM8+ i-STAT OW2018-05-07 19:10:00 Test Item Value Reference Range Interpretation Comments SODIUM (test code = JULIO CÉSAR) 139 mmol/L 138-146 POTASSIUM (test code = KI) 4.0 mmol/L 3.5-4.9 CHLORIDE (test code = CLI) 101 mmol/L 98-109 CA IONIZED (test code = ICAI) 1.10 mmol/L 1.12-1.32 L GLUCOSE (test code = GLUI) 93 mg/dL 75-100 TCO2 (test code = TCO2) 27 mmol/L 24-29 BUN (test code = BUN1) 19 mg/dL 8-26 CREATININE (test code = CREAI) 1.0 mg/dL 0.6-1.3 ANION GAP (test code = GANG) 16.0 mmol/L HGB (test code = MHB) 15.3 g/dL 12.0-17.0 HCT (test code = MHCT) 45.0 % 38.0-51.0 CBC (INCLUDES AUTOMATED DIFFERENTIAL) *2018-05-07 19:09:00 Test Item Value Reference Range Interpretation Comments WBC (test code = WBC) 9.7 10\S\3/uL 4.5-11.0 RBC (test code = RBC) 4.96 10\S\6/uL 4.20-5.60 HGB (test code = HBG) 14.7 g/dL 14.0-18.0 HCT (test code = HCT) 45.2 % 35.0-46.0 MCV (test code = MCV) 91.2 fL 80.0-94.0 MCH (test code = MCH) 29.6 pg 27.0-31.0 MCHC (test code = MCHC) 32.5 g/dL 32.0-36.0 RDW (test code = RDW) 14.5 % 11.5-14.5 PLT (test code = PLT) 183 10\S\3/uL 130-400 MPV (test code = OMPV) 8.5 fL 6.2-10.2 NEUTROP # (test code = NE#) 6.5 10\S\3/uL 2.0-8.0 LYMPH # (test code = LY#) 2.2 10\S\3/uL 1.2-4.0 MID # (test code = GMID#) 1.0 10\S\3/uL 0.0-1.1 GRA % (test code = GRA%) 67.2 % 35.0-73.0 LYMPH % (test code = GLY%) 22.9 % 20.0-55.0 MID % (test code = GMID%) 9.9 % 0.0-10.0 PROTHROMBIN TIME i-STAT OW2018-05-07 19:01:00 Test Item Value Reference Range Interpretation Comments PT (test code = 13.0 s 10.0-13.0 PT1) INR (test code = 1.1 INR) INRH (test code = SUGGESTED INRH) THERAPEUTIC RANGE FOR INR: 2.5 - 3.5 For Patients with Prosthetic Valves or Patients with recurrent Thromboembolic Events 2.0 - 3.0 For Most Other Applications TROPONIN I i-STAT OW2018-05-07 19:00:00 Test Item Value Reference Range Interpretation Comments TROPONIN I (test code = A84) 0.020 ng/mL 0.000-0.045
[2021-01-19 15:40] LABS: Absolute Lymphocytes (CBC) 2.7 K/uL (0.7-4.9); Basophils % 1.1 % (0-1.3); Lymphocytes % 25.4 % (15.3-44.8); MPV 9.1 fL (7.6-11.3); RBC Red Blood Cell Count 4.95 M/uL (4.33-5.43)
--- NOTE | 2021-01-19 15:52 | RAD REPORT ---
EXAM DESCRIPTION: RAD - Chest Single View - 01/19/2021 3:45 pm CLINICAL HISTORY: dizziness Chest pain. COMPARISON: <Comparisons> FINDINGS: Portable technique limits examination quality. The lungs are grossly clear. The heart is normal in size. No displaced fractures. IMPRESSION: No acute intrathoracic process suspected.
[2021-01-19 15:53] LABS: Protime INR 0.99
[2021-01-19 16:08] LABS: ALT/SGPT 27 U/L (12-78); AST/SGOT 23 U/L (15-37); Albumin 3.6 g/dL (3.4-5.0); Alkaline Phosphatase 69 U/L (45-117); BUN Blood Urea Nitrogen 16 mg/dL (7-18); Bicarbonate 26 mmol/L (21-32); Bilirubin Direct < 0.1 mg/dL (0-0.2); Bilirubin Total 0.3 mg/dL (0.2-1.0); Glucose Level 132 mg/dL (74-106); Magnesium 2.1 mg/dL (1.8-2.4); NT PRO-BNP 85 pg/mL (<125); Potassium 3.8 mmol/L (3.5-5.1); Protein, Total 7.4 g/dL (6.4-8.2); Sodium Level 142 mmol/L (136-145); Troponin (Emerg Dept Use Only) < 0.02 ng/mL (0.0-0.045)
--- NOTE | 2021-01-19 16:29 | RAD REPORT ---
EXAM DESCRIPTION: CT - Head Brain Wo Cont - 01/19/2021 4:21 pm CLINICAL HISTORY: DIZZINESS Headache, drowsiness COMPARISON: No comparisons TECHNIQUE: All CT scans are performed using dose optimization technique as appropriate and may inclu de automated exposure control or mA/KV adjustment according to patient size. FINDINGS: No intracranial hemorrhage, hydrocephalus or extra-axial fluid collection.No areas of brai n edema or evidence of midline shift. The paranasal sinuses and mastoids are clear. The calvarium is intact. IMPRESSION: No acute intracranial abnormality.
--- NOTE | 2021-01-19 17:53 | ER ---
Nurse's Notes [facility] Name: Venkat Gutierrez Age: 65 yrs Sex: Male : 1955 Arrival Date: 01/19/2021 Time: 14:57 Bed 26 Private MD: Diagnosis: Dizziness and giddiness Presentation: 01/19 14:57 Chief complaint: EMS states: patient began to feel dizzy when he bent over to get his ap3 briefcase. He went to the [facility] in the office, and that is when EMS was called. Coronavirus screen: Client denies travel out of the [place] in the last 14 days. At this time, the client does not indicate any symptoms associated with coronavirus-19. Ebola Screen: No symptoms or risks identified at this time. Initial Sepsis Screen: Does the patient meet any 2 criteria? No. Patient's initial sepsis screen is negative. Does the patient have a suspected source of infection? No. Patient's initial sepsis screen is negative. Risk Assessment: Do you want to hurt yourself or someone else? Patient reports no desire to harm self or others. Onset of symptoms was January 19, 2021. Care prior to arrival: Medication(s) given: ASA, 81 mg, x 1, IV initiated. 18 GA, in the left antecubital area, Oxygen administered. via nasal cannula. 14:57 Method Of Arrival: EMS: [facility] ap3 14:57 Acuity: LUIS MIGUEL 3 ap3 Triage Assessment: 15:03 General: Appears comfortable, Behavior is calm, cooperative, appropriate for age. Pain: ap3 Denies pain. EENT: No signs and/or symptoms were reported regarding the EENT system. Neuro: Reports dizziness, since less than one hour ago. Cardiovascular: Denies chest pain. Respiratory: Denies shortness of breath. GI: Patient currently denies nausea. : No signs and/or symptoms were reported regarding the genitourinary system. Derm: No signs and/or symptoms reported regarding the dermatologic system. Historical: - Allergies: 15:03 No Known Allergies; ap3 - Home Meds: 15:03 aspirin 81 mg Oral chew [Active]; atorvastatin [Active]; clopidogrel 75 mg Oral tab ap3 [Active]; metoprolol tartrate 50 mg Oral tab [Active]; Vascepa 1 gram Oral cap [Active]; Zoloft Oral [Active]; - PMHx: 15:03 Myocardial infarction; ap3 - PSHx: 15:03 Heart stents; ap3 - Immunization history:: Adult Immunizations up to date. - Social history:: Smoking status: Patient/guardian denies using tobacco, the patient reports quitting approximately 8 years ago. Screenin:03 Abuse screen: Denies threats or abuse. Nutritional screening: No deficits noted. ap3 Tuberculosis screening: No symptoms or risk factors identified. Fall Risk None identified. Assessment: 15:05 General: see triage assessment. ap3 16:28 Reassessment: Patient and/or family updated on plan of care and expected duration. Pain ap3 level reassessed. Patient is alert, oriented x 3, equal unlabored respirations, skin warm/dry/pink. 17:06 Reassessment: patient resting in bed. denies pain at this time. side rails are up X's ap3 2. bed is locked in lowest position. call light is within reach. Vital Signs: 14:57 BP 104 / 67; Pulse 73; Pulse Ox 97% ; Weight 131.54 kg; Height 6 ft. (182.88 cm); ap3 15:05 BP 119 / 61; Pulse 74; Resp 13; Temp 97.9; Pulse Ox 100% on R/A; Pain 0/10; ap3 15:30 BP 126 / 64 RA Supine; Pulse 73 MON; Pulse Ox 96% on R/A; ap3 15:35 BP 131 / 56 RA Sitting (auto/); Pulse 77; Pulse Ox 98% on R/A; ap3 15:40 BP 128 / 66 Standing; Pulse 76 RA; Pulse Ox 96% on R/A; ap3 16:25 BP 145 / 79; Pulse 72; Resp 17; Pulse Ox 98% on R/A; ap3 17:19 BP 133 / 75; Pulse 67; Resp 13; Pulse Ox 97% on R/A; ap3 14:57 Body Mass Index 39.33 (131.54 kg, 182.88 cm) ap3 NIH Stroke Scale Scores: 15:25 NIHSS Score: 0 jr8 ED Course: 14:57 Patient arrived in ED. ds1 14:57 Dea Quevedo RN is Primary Nurse. ap3 14:59 Dangelo Amin PA is PHCP. jr8 14:59 Sai Mallory MD is Attending Physician. jr8 15:01 Triage completed. ap3 15:04 Arm band placed on right wrist. EKG completed in triage. Results shown to MD. ap3 15:04 Patient has correct armband on for positive identification. Bed in low position. Call ap3 light in reach. Side rails up X2. air sampling and monitoring on. Pulse ox on. NIBP on. Door closed. Noise minimized. Warm blanket given. 15:05 Maintain EMS IV. Dressing intact. Site clean \T\ dry. Gauge \T\ site: 20G LEFT AC. ap 3 15:46 XRAY Chest (1 view) In Process Unspecified. EDMS 16:21 CT Head Brain wo Cont In Process Unspecified. EDMS 16:25 Patient moved back from CT. ap3 17:49 Nurse Practitioner and/or Physician Regional Loss Prevention Manager to see patient. ap3 18:01 No provider procedures requiring assistance completed. IV discontinued, intact, ap3 bleeding controlled, No redness/swelling at site. Pressure dressing applied. Administered Medications: No medications were administered Outcome: 17:52 Discharge ordered by MD. jr8 18:01 Discharged to home ambulatory. ap3 18:01 Condition: good 18:01 Discharge instructions given to patient, Instructed on discharge instructions, follow up and referral plans. Demonstrated understanding of instructions, follow-up care. 18:09 Patient left the ED. ap3 NIH Stroke Scale - NIH Stroke Score Date: 01/19/2021 Time: 15:25 Total Score = 0 1a. Level of Consciousness (LOC) - 0(Alert) 1b. Level of Consciousness (LOC) (Year \T\ Age) - 0(Both) 1c. LOC Commands (Open \T\ Closes Eyes/Mobile Home Park Manager) - 0(Both) 2. Best Gaze (Lateral Gaze Paresis) - 0(Normal) 3. Visual Field Loss - 0(No visual loss) 4. Facial Palsy - 0(Normal) 5a. Left Arm: Motor (10-second hold) - 0(No drift) 5b. Right Arm: Motor (10-second hold) - 0(No drift) 6a. Left Leg: Motor (5-second hold - always test supine) - 0(No drift) 6b. Right Leg: Motor (5-second hold - always test supine) - 0(No drift) 7. Limb Ataxia (finger/nose \T\ heel/landin - test with eyes open) - 0(Absent) 8. Sensory Loss (pinprick arms/legs/face) - 0(Normal) 9. Best Language: Aphasia (description/naming/reading) - 0(No aphasia) 10. Dysarthria (speech clarity - read or repeat words) - 0(Normal) 11. Extinction and Inattention (visual/tactile/auditory/spatial/personal) - 0(No abnormality) Initials: jr8 Signatures: Dispatcher [employer] [facility] Floresita Sousa ds1 Dangelo Amin PA PA jr8 Dea Quevedo RN RN ap3
--- NOTE | 2021-01-19 17:53 | EDPHYS ---
Physician Documentation [facility] Name: Venkat Gutierrez Age: 65 yrs Sex: Male : 1955 Arrival Date: 01/19/2021 Time: 14:57 Bed 26 Private MD: ED Physician Sai Mallory HPI: 01/19 15:25 This 65 yrs old Male presents to ER via EMS with complaints of Dizziness. jr8 15:25 The patient presents with lightheadedness. Onset: The symptoms/episode began/occurred jr8 acutely, today. Context: occurred at work. Modifying factors: The symptoms are alleviated by lying down, the symptoms are aggravated by standing up, changing position. Associated signs and symptoms: The patient has no apparent associated signs or symptoms. Severity of symptoms: At their worst the symptoms were moderate in the emergency department the symptoms have resolved. Patient's baseline: Neuro: alert and fully oriented, Motor: no deficits, Ambulation: walks without assistance, Speech: normal. The patient has not experienced similar symptoms in the past. The patient has not recently seen a physician. Patient stated that he got up to look at something in his work lab. Immediately became dizzy. Since then has had two other spells. Denies any other symptoms associated with the dizziness. History of ME in past. Stated that at that time had dizziness and nausea only. No nausea, CP, back pain, indigestion feeling . Historical: - Allergies: 15:03 No Known Allergies; ap3 - Home Meds: 15:03 aspirin 81 mg Oral chew [Active]; atorvastatin [Active]; clopidogrel 75 mg Oral tab ap3 [Active]; metoprolol tartrate 50 mg Oral tab [Active]; Vascepa 1 gram Oral cap [Active]; Zoloft Oral [Active]; - PMHx: 15:03 Myocardial infarction; ap3 - PSHx: 15:03 Heart stents; ap3 - Immunization history:: Adult Immunizations up to date. - Social history:: Smoking status: Patient/guardian denies using tobacco, the patient reports quitting approximately 8 years ago. ROS: 15:25 Eyes: Negative for injury, pain, redness, and discharge, ENT: Negative for injury, jr8 pain, and discharge, Neck: Negative for injury, pain, and swelling, Cardiovascular: Negative for chest pain, palpitations, and edema, Respiratory: Negative for shortness of breath, cough, wheezing, and pleuritic chest pain, Abdomen/GI: Negative for abdominal pain, nausea, vomiting, diarrhea, and constipation, Back: Negative for injury and pain, MS/Extremity: Negative for injury and deformity, Skin: Negative for injury, rash, and discoloration. 15:25 Neuro: Positive for dizziness. Exam: 15:25 Eyes: Pupils equal round and reactive to light, extra-ocular motions intact. Lids and jr8 lashes normal. Conjunctiva and sclera are non-icteric and not injected. Cornea within normal limits. Periorbital areas with no swelling, redness, or edema. ENT: Nares patent. No nasal discharge, no septal abnormalities noted. Tympanic membranes are normal and external auditory canals are clear. Oropharynx with no redness, swelling, or masses, exudates, or evidence of obstruction, uvula midline. Mucous membranes moist. Neck: Trachea midline, no thyromegaly or masses palpated, and no cervical lymphadenopathy. Supple, full range of motion without nuchal rigidity, or vertebral point tenderness. No Meningismus. Cardiovascular: Regular rate and rhythm with a normal S1 and S2. No gallops, murmurs, or rubs. Normal PMI, no JVD. No pulse deficits. Respiratory: Lungs have equal breath sounds bilaterally, clear to auscultation and percussion. No rales, rhonchi or wheezes noted. No increased work of breathing, no retractions or nasal flaring. Abdomen/GI: Soft, non-tender, with normal bowel sounds. No distension or tympany. No guarding or rebound. No evidence of tenderness throughout. Back: No spinal tenderness. No costovertebral tenderness. Full range of motion. Skin: Warm, dry with normal turgor. Normal color with no rashes, no lesions, and no evidence of cellulitis. MS/ Extremity: Pulses equal, no cyanosis. Neurovascular intact. Full, normal range of motion. Neuro: Awake and alert, GCS 15, oriented to person, place, time, and situation. Cranial nerves II-XII grossly intact. Motor strength 5/5 in all extremities. Sensory grossly intact. Cerebellar exam normal. Normal gait. Vital Signs: 14:57 BP 104 / 67; Pulse 73; Pulse Ox 97% ; Weight 131.54 kg; Height 6 ft. (182.88 cm); ap3 15:05 BP 119 / 61; Pulse 74; Resp 13; Temp 97.9; Pulse Ox 100% on R/A; Pain 0/10; ap3 15:30 BP 126 / 64 RA Supine; Pulse 73 MON; Pulse Ox 96% on R/A; ap3 15:35 BP 131 / 56 RA Sitting (auto/); Pulse 77; Pulse Ox 98% on R/A; ap3 15:40 BP 128 / 66 Standing; Pulse 76 RA; Pulse Ox 96% on R/A; ap3 16:25 BP 145 / 79; Pulse 72; Resp 17; Pulse Ox 98% on R/A; ap3 17:19 BP 133 / 75; Pulse 67; Resp 13; Pulse Ox 97% on R/A; ap3 14:57 Body Mass Index 39.33 (131.54 kg, 182.88 cm) ap3 NIH Stroke Scale Scores: 15:25 NIHSS Score: 0 jr8 MDM: 14:59 Patient medically screened. jr8 17:50 Differential diagnosis: cardiac arrhythmia, CVA, generalized weakness, hypovolemia, jr8 idiopathic dizziness, near-syncope, TIA, vertigo. Data reviewed: vital signs, nurses notes, lab test result(s), EKG, radiologic studies, CT scan, MRI. Data interpreted: Pulse oximetry: on room air is 97 %. Interpretation: normal. Counseling: I had a detailed discussion with the patient and/or guardian regarding: the historical points, exam findings, and any diagnostic results supporting the discharge/admit diagnosis, lab results, radiology results, the need for outpatient follow up, a family practitioner, to return to the emergency department if symptoms worsen or persist or if there are any questions or concerns that arise at home. Response to treatment: the patient's symptoms have resolved after treatment. 17:50 ED course: All symptoms resolved. No acute findings on labs, ECG, or imaging. Negative jr8 orthostatics. Remains hemodynamically stable. Will send home with close f/u and asked that he start taking 162mg of aspirin a day instead of 81 mg. Patient good with that and knows to come back if anything were to worsen, change, or evolve . 01/19 15:23 Order name: Basic Metabolic Panel; Complete Time: 16:15 jr8 01/19 15:23 Order name: CBC with Diff; Complete Time: 15:51 01/19 15:23 Order name: LFT's; Complete Time: 16:15 01/19 15:23 Order name: Magnesium; Complete Time: 16:15 01/19 15:23 Order name: NT PRO-BNP; Complete Time: 16:15 01/19 15:23 Order name: PT-INR; Complete Time: 15:58 01/19 15:23 Order name: Troponin (emerg Dept Use Only); Complete Time: 16:15 01/19 15:23 Order name: XRAY Chest (1 view); Complete Time: 15:58 01/19 15:23 Order name: EKG; Complete Time: 15:24 01/19 15:23 Order name: Cardiac monitoring; Complete Time: 15:32 01/19 15:23 Order name: EKG - Nurse/Tech; Complete Time: 15:32 01/19 15:23 Order name: IV Saline Lock; Complete Time: 15:32 01/19 15:23 Order name: Labs collected and sent; Complete Time: 15:32 01/19 16:00 Order name: CT Head Brain wo Cont; Complete Time: 16:45 01/19 15:23 Order name: O2 Per Protocol; Complete Time: 15:32 01/19 15:23 Order name: O2 Sat Monitoring; Complete Time: 15:32 01/19 15:23 Order name: Orthostatics; Complete Time: 15:40 jr8 Administered Medications: No medications were administered Disposition: 18:22 Co-signature as Attending Physician, Sai Mallory MD. rn Disposition: 01/19/21 17:52 Discharged to Home. Impression: Dizziness and giddiness. - Condition is Stable. - Discharge Instructions: Dizziness, Vertigo. - Medication Reconciliation Form, Thank You Letter, Antibiotic Education, Prescription Opioid Use form. - Follow up: Private Physician; When: 1 - 2 days; Reason: Recheck today's complaints, Continuance of care, Re-evaluation by your physician. - Problem is new. - Symptoms are resolved. NIH Stroke Scale - NIH Stroke Score Date: 01/19/2021 Time: 15:25 Total Score = 0 1a. Level of Consciousness (LOC) - 0(Alert) 1b. Level of Consciousness (LOC) (Year \T\ Age) - 0(Both) 1c. LOC Commands (Open \T\ Closes Eyes/Fusing Machine Tender) - 0(Both) 2. Best Gaze (Lateral Gaze Paresis) - 0(Normal) 3. Visual Field Loss - 0(No visual loss) 4. Facial Palsy - 0(Normal) 5a. Left Arm: Motor (10-second hold) - 0(No drift) 5b. Right Arm: Motor (10-second hold) - 0(No drift) 6a. Left Leg: Motor (5-second hold - always test supine) - 0(No drift) 6b. Right Leg: Motor (5-second hold - always test supine) - 0(No drift) 7. Limb Ataxia (finger/nose \T\ heel/landin - test with eyes open) - 0(Absent) 8. Sensory Loss (pinprick arms/legs/face) - 0(Normal) 9. Best Language: Aphasia (description/naming/reading) - 0(No aphasia) 10. Dysarthria (speech clarity - read or repeat words) - 0(Normal) 11. Extinction and Inattention (visual/tactile/auditory/spatial/personal) - 0(No abnormality) Initials: jr8 Signatures: Dispatcher [employer] EDMS Sai Mallory MD MD rn Roszak, Josh, PA PA jr8 Dea Quevedo RN RN ap3 Corrections: (The following items were deleted from the chart) 18:09 17:52 01/19/2021 17:52 Discharged to Home. Impression: Dizziness and giddiness. ap3 Condition is Stable. Forms are Medication Reconciliation Form, Thank You Letter, Antibiotic Education, Prescription Opioid Use. Follow up: Private Physician; When: 1 - 2 days; Reason: Recheck today's complaints, Continuance of care, Re-evaluation by your physician. Problem is new. Symptoms are resolved. jr8
[2021-01-19 18:19] VITALS: TEMP 97.9
[2021-01-19 18:28] VITALS: BP 133/75; O2SAT 97
== END 2021-01-19 18:09 | disposition home or self-care (01) ==
LOC: ER 14:55
DX: R42 Dizziness and giddiness (principal); I25.2 Old myocardial infarction; Z95.818 Presence of other cardiac implants and grafts; Z79.82 Long term (current) use of aspirin
CPT/HCPCS: 36415; 70450; 71045; 80048; 80076; 83735; 83880; 84484; 85025; 85610; 93005; 99285